=== PATIENT | male | born 1990 | race African-American/Black ===

== ENCOUNTER 2020-07-01 19:10 | Emergency (ER) | payer MEDICAID ==
[~2020-07-01] VITALS: Ht 172.7 cm; Wt 65.8 kg
[2020-07-01] MEDS ORDERED: IMODIUM2 MG ORAL (19:34)
[2020-07-01] MEDS ORDERED: LIDOCAINE VISC100 ML ORAL (19:34)
[2020-07-01] MEDS: Lidocaine 2% Visc 15ml soln ORAL ONE (19:36)
[2020-07-01 19:40] VITALS: BP 139/78
[2020-07-01 19:42] VITALS: BP 135/91
[2020-07-01 19:46] VITALS: BP 138/91
[2020-07-01 19:49] VITALS: BP 129/84
--- NOTE | 2020-07-01 19:54 | NUR ---
ER DISCHARGE NOTE: Patient is cleared to be discharged per ERMD, pt is aox4, on room air, with stable vital signs. pt was given dc and prescription instructions, pt was able to verbalize understanding, pt id band and iv site removed without complications. pt is able to ambulate with steady gait. pt took all belongings.
--- NOTE | 2020-07-08 13:40 | Emergency Room Report ---
History of Present Illness General Chief Complaint: Sore Throat Source: Patient Present Illness HPI Patient is a 30-year-old male presents for increased sore throat. Associated diarrhea. Reports having intermittent nonproductive cough. Denies feeling short of breath. Denies any contacts with coronavirus infection. Reports having previous coronavirus infection in April. Not been having any bloody stools. Denies any change in his voice. Increased discomfort with swallowing. Allergies: Coded Allergies: No Known Allergies (Unverified , 07/01/20) COVID-19 Screening Contact w/high risk pt: No Experienced COVID-19 symptoms?: Yes COVID-19 Testing performed [employer]: Yes - Apr 2020 COVID-19 Screening: Positive COVID-19 COVID-19 Testing Source: unknown Patient History Past Medical History: see triage record Reviewed Nursing Documentation: PMH: Agreed; PSxH: Agreed Nursing Documentation-PMH Past Medical History: No History, Except For Review of Systems All Other Systems: negative except mentioned in HPI Physical Exam General Appearance: well appearing, no apparent distress, alert, GCS 15 Head: normocephalic, atraumatic ENT: hearing grossly normal, normal voice, other - No erythema or exudate. Neck: full range of motion, supple Respiratory: lungs clear, no respiratory distress, speaking full sentences Cardiovascular #1: normal inspection, no edema Gastrointestinal: normal inspection Musculoskeletal: no calf tenderness Neurologic: alert, motor strength/tone normal, wholesale buyer III-XII nml as tested, oriented x3, normal gait Psychiatric: mood/affect normal Skin: no rash Medical Decision Making Diagnostic Impression: Primary Impression: Pharyngitis ER Course Patient presents for sore throat. Differential diagnosis included but was not limited to meningitis, exudative tonsillitis, retropharyngeal abscess, epiglottitis, strep pharyngitis. Patient has a benign exam and does not appear to require any imaging or laboratory testing at this time. Patient appears to have some viral symptoms. Does not appear to have any evidence of bacterial pharyngitis at this time. Patient was advised to gargle with salt water. He was given medications for symptomatic management. He was advised to return if worse. Patient appears to be stable for outpatient management. Patient is advised to have outpatient coronavirus testing performed. Does not appear to require antibiotics at this time. No evidence of abscess. This medical record is generated with [employer] telecommunication engineer software. There may be some telecommunication engineer discrepancies related to use of this software. Status: improved Disposition: HOME, SELF-CARE Condition: Stable Scripts Loperamide HCl (Loperamide) 2 Mg Capsule 2 MG ORAL Q4H for diarrhea, #20 CAP 0 Refills Prov: Bert Mandujano MD 07/01/20 Lidocaine HCl 2% Viscous (Lidocaine HCl 2% Viscous) 100 Ml Solution 15 ML ORAL QID, #100 ML Prov: Bert Mandujano MD 07/01/20 Referrals: NON PHYSICIAN Patient Instructions: Sore Throat Bert Mandujano MD Jul 08, 2020 13:39
== END 2020-07-01 19:53 | disposition home or self-care (01) ==
LOC: EMR 19:40
DX: J02.9 Acute pharyngitis, unspecified (principal); Z86.16 Personal history of COVID-19
CPT/HCPCS: 99282